=== PATIENT | male | born 1995 | race African-American/Black ===

== ENCOUNTER 2018-01-14 17:55 | Emergency (ER) | payer SELFPAY ==
[~2018-01-14] VITALS: Ht 175.3 cm; Wt 87.1 kg
[2018-01-14 18:29] VITALS: BP 152/90
--- NOTE | 2018-01-14 18:29 | ED ANIMAL BITE/WOUND CHECK ---
History of Present Illness General Chief Complaint: Animal/Insect Bite Stated Complaint: DOG BITE Source: patient Exam Limitations: no limitations Vital Signs & Intake/Output Vital Signs & Intake/Output Vital Signs Date Time Temp Pulse Resp B/P B/P Pulse O2 O2 Flow FiO2 Mean Ox Delivery Rate 01/14 1829 96.8 81 16 152/90 97 Room Air Allergies Coded Allergies: No Known Allergies (01/14/18) Reconcile Medications Amoxicillin 500 MG TABLET 1 TAB PO TID cellulitis Ibuprofen 800 MG TABLET 1 TAB PO TID PRN pain/swelling start on 01/15/18. Sulfamethoxazole/Trimethoprim (Bactrim Ds Tablet) 800 MG-160 MG TABLET 1 TAB PO BID cellulitis Triage Note: PT STATES HIS DOG BIT HIM RIGHT HAND. PT HAS SWELLING AND REDNESS TO RIGHT HAND. PT STATE DOG IS UTD WITH SHOTS. PT IS ALSO UTD WITH TETANUS. Triage Nurses Notes Reviewed? yes Onset: Abrupt Duration: day(s): (1) Timing: no prior history Injury Environment: home Is Injury an Animal Bite? Yes Animal Type: dog, family pet Context of Animal Attack: playing with animal Appearance of Animal: appeared well Animal Immunization Status: up to date Severity: mild Severity Numbers: 4 Modifying Factors: Improves With: immobilization. Worsens With: movement. HPI: Patient is a 22-year-old male with no medical history presenting to the emergency Department chief complaint of getting bit by his dog yesterday evening around 5 PM. Patient reports that he was playing with his dog and must have scared him and he bit his right hand. Cleaned off the wound immediately. Patient is up-to-date with tetanus. Dog is up-to-date with immunizations. Nose increased redness pain and swelling today. Denies discharge. No fevers or chills nausea or vomiting. Pain is currently moderate can throbbing worse with any range of motion and palpation. (Jessika Murrieta) Past History Travel History Traveled to [place] past 21 day No Medical History Any Pertinent Medical History? see below for history Surgical History Surgical History: non-contributory Psychosocial History What is your primary language Mongolian Tobacco Use: Never used ETOH Use: denies use Illicit Drug Use: denies illicit drug use Family History Hx Contributory? No (Jessika Murrieta) Review of Systems Review of Systems Constitutional: Reports: no symptoms. Comments Review of systems: See HPI, All other systems negative. Constitutional, no chills fever or weight loss HEENT: No visual changes no sore throat no congestion Cardiovascular: No chest pain ,palpitation , orthopnea or ankle swelling Skin, no jaundice Respiratory: No dyspnea cough sputum GI: No nausea no vomiting Muscle skeletal: no back pain, no neck pain, Neurologic: No numbness Psych: No stress anxiety Immunology: No splenectomy or history of AIDS (Jessika uMrrieta) Physical Exam Physical Exam General Appearance: well developed/nourished, no apparent distress, alert, awake , comfortable Comments: Well-developed well-nourished person in no acute distress HEENT: Atraumatic, normocephalic Neck: Normal inspection Cardiovascular: Radio pulses are 2+ bilaterally. Respiratory: No respiratory distress. Extremity: Moderate edema noted to the lateral aspect of the right hand, full range of motion of right hand without difficulty or pain. Neuro: Alert oriented x3, motor sensory normal Skin: Moderate erythema approximately spending the area of 8 cm on the lateral aspect of the right hand that extends slightly on the dorsal and palmar aspect of the hand. Psych: Mood and affect is normal, memory and judgment is normal. (Jessika Murrieta) Progress Differential Diagnosis: abscess, cellulitis Plan of Care: Orders Procedure Date/time Status LACTIC ACID 01/14 1829 Complete COMPREHENSIVE METABOLIC PANEL 01/14 1829 Complete CBC WITHOUT DIFFERENTIAL 01/14 1829 Complete Laboratory Tests 01/14/18 1834: Anion Gap 11, Estimated GFR > 60, BUN/Creatinine Ratio 11.8, Glucose 88, Lactic Acid 1.0, Calcium 9.7, Total Bilirubin 0.5, AST 30, ALT 44, Alkaline Phosphatase 68, Total Protein 8.4 H, Albumin 4.7, Globulin 3.7, Albumin/Globulin Ratio 1.3, CBC w Diff NO MAN DIFF REQ, RBC 5.01, MCV 88.3, MCH 29.9, MCHC 33.9, RDW 13.4, MPV 10.3, Gran % 70.4, Lymphocytes % 21.8, Monocytes % 6.8, Eosinophils % 0.6, Basophils % 0.4, Absolute Granulocytes 7.6 H, Absolute Lymphocytes 2.3, Absolute Monocytes 0.7 H, Absolute Eosinophils 0.1, Absolute Basophils 0 Diagnostic Imaging: Viewed by Me: Radiology Read. Discussed w/RAD: Radiology Read. Radiology Impression: PATIENT: DAYAMI MAGANA PRESENT AGE: 22 PATIENT ACCOUNT NO: [id number] : 95 LOCATION: [facility] ORDERING PHYSICIAN: Jessika ARAGON SERVICE DATE: 01/14/18 EXAM TYPE: RAD - XRY-HAND, RIGHT EXAMINATION: RIGHT HAND 3 VIEWS CLINICAL INFORMATION: Cellulitis , dog bite. COMPARISON: None. TECHNIQUE: PA, lateral, oblique views of the right hand were obtained. FINDINGS: There are no fractures or dislocations. There is soft tissue swelling about the ulnad aspect of the hand. There are no radiopaque foreign bodies. IMPRESSION: Soft tissue swelling without fracture or dislocation. DICTATED BY: José Swain MD DATE/TIME DICTATED:01/14/181904 SUPERVISOR BEATER ROOM:JOSE DATE/TIME TRANSCRIBED:01/14/181904 CONFIDENTIAL, DO NOT COPY WITHOUT APPROPRIATE AUTHORIZATION. <Electronically signed in Other Vendor System> SIGNED BY: José Swain MD 01/14/181909 Comments: Patient received IV Toradol and IV Unasyn here in the emergency department. Lactic acid is negative. No fever and no elevation with blood cell count. Patient makes a good outpatient candidate. patient will return in 24 hours for wound check. Patient is nontoxic and compliant. (Jessika Murrieta) Departure Departure Disposition: HOME OR SELF CARE Condition: Stable Clinical Impression Primary Impression: Cellulitis Qualifiers: Site of cellulitis: extremity Site of cellulitis of extremity: upper extremity Laterality: right Qualified Code: L03.113 - Cellulitis of right upper limb Referrals: Patient Has No Primary Care Dr (PCP/Family) Additional Instructions: Return to the emergency Department for a wound check in the next 24 hours. Return sooner if her symptoms worsen sooner. Take antibiotics as prescribed. Take anti-inflammatories as prescribed. Return for worsening symptoms or concerns. Departure Forms: Customer Survey General Discharge Information Prescriptions: Current Visit Scripts Amoxicillin 1 TAB PO TID #30 TAB Sulfamethoxazole/Trimethoprim (Bactrim Ds Tablet) 1 TAB PO BID #20 TAB Ibuprofen 1 TAB PO TID PRN pain/swelling #30 TAB start on 01/15/18. (Jessika Murrieta) PA/KINDERGARTEN INSTRUCTIONAL ASSISTANT Co-Sign Statement Statement: ED Attending supervision documentation- [] I saw and evaluated the patient. I have also reviewed all the pertinent lab results and diagnostic results. I agree with the findings and the plan of care as documented in the PA's/KINDERGARTEN INSTRUCTIONAL ASSISTANT's documentation. [X] I have reviewed the ED Record and agree with the PA's/KINDERGARTEN INSTRUCTIONAL ASSISTANT's documentation. [] Additions or exceptions (if any) to the PAs/KINDERGARTEN INSTRUCTIONAL ASSISTANT's note and plan are summarized below: [] (Hipolito COELHO,Carmelo Dixon)
[2018-01-14 18:52] LABS: ABSOLUTE BASOPHIL COUNT 0 /CUMM (0.0-0.2); ABSOLUTE EOSINOPHIL COUNT 0.1 /CUMM (0.0-0.7); ABSOLUTE GRANULOCYTE CT 7.6 /CUMM (1.4-6.5); ABSOLUTE LYMPH COUNT 2.3 /CUMM (1.2-3.4); ABSOLUTE MONOCYTE COUNT 0.7 /CUMM (0.10-0.60); BASOPHIL % 0.4 % (0.0-2.0); EOSINOPHIL % 0.6 % (0-5); GRANULOCYTE % 70.4 % (42.2-75.2); HEMATOCRIT 44.2 % (42-52); MEAN CORPUSCULAR HGB 29.9 PG (27.0-31.0); MEAN CORPUSCULAR HGB CONC 33.9 G/DL (33.0-37.0); MEAN CORPUSCULAR VOLUME 88.3 FL (80.0-94.0); MEAN PLATELET VOLUME 10.3 FL (7.4-10.4); PLATELET COUNT 165 /CUMM (130-400); RBC DISTRIBUTION WIDTH 13.4 % (11.5-14.5); RED BLOOD CELL CT 5.01 /CUMM (4.70-6.10); WHITE BLOOD CELL COUNT 10.8 /CUMM (4.8-10.8)
--- NOTE | 2018-01-14 19:10 | RADIOLOGY REPORT ---
EXAMINATION: RIGHT HAND 3 VIEWS CLINICAL INFORMATION: Cellulitis, dog bite. COMPARISON: None. TECHNIQUE: PA, lateral, oblique views of the right hand were obtained. FINDINGS: There are no fractures or dislocations. There is soft tissue swelling about the ulnad aspect of the hand. There are no radiopaque foreign bodies. IMPRESSION: Soft tissue swelling without fracture or dislocation.
[2018-01-14] MEDS ORDERED: AMOXICILLIN500 M3 PO (19:20)
[2018-01-14] MEDS ORDERED: BACTRIM DS TAB1 EACH PO (19:20)
[2018-01-14] MEDS ORDERED: IBUPROFEN800 M1 PO (19:20)
[2018-01-15] MEDS ORDERED: AUGMENTIN 875-1 EACH PO (18:23)
== END 2018-01-14 20:19 ==
LOC: ERH 17:55
PROVIDERS: Physician Assistant
DX: L03.113 Cellulitis of right upper limb (principal)
CPT/HCPCS: 73130-RT; 96374; 96375; J1885